=== PATIENT | male | born 1995 | race Caucasian/White ===

== ENCOUNTER 2018-09-17 21:28 | Emergency (ER) | payer OTHER ==
[~2018-09-17] VITALS: Ht 185.4 cm; Wt 63.6 kg
[2018-09-17 21:32] VITALS: TEMP 99.2
[2018-09-17] MEDS ORDERED: PREDNISONE20 MG PO (21:45)
[2018-09-17] MEDS ORDERED: CEPHALEXIN500 M1 PO (21:45)
[2018-09-17 22:08] VITALS: BP 121/79; PULSE 68
== END 2018-09-17 22:09 | disposition home or self-care (01) ==
LOC: COL.ER 21:28
DX: T63.461A Toxic effect of venom of wasps, accidental (unintentional), initial encounter (principal); F12.90 Cannabis use, unspecified, uncomplicated; Z23 Encounter for immunization
CPT/HCPCS: J7512